=== PATIENT | male | born 1970 | race Caucasian/White ===

== ENCOUNTER 2022-09-03 06:47 | Day surgery (SDC) | payer OTHER, SELFPAY ==
[2022-09-03] VITALS (8 sets, daily range): BP systolic 121–137; BP diastolic 74–86; PULSE 66–92; RESP 18; TEMP 36.3–36.6; O2SAT 94–100; BMI 24.3
== END 2022-09-03 08:54 | disposition home or self-care (01) ==
PROVIDERS: PCP Family Medicine; Visit Provider Ophthalmology
PROC: (CPT 66984; principal; 2022-09-03 08:00)
DX: H25.812 Combined forms of age-related cataract, left eye (principal)
CPT/HCPCS: 66984; V2632

== ENCOUNTER 2022-09-17 06:39 | Day surgery (SDC) | payer OTHER, SELFPAY ==
[2022-09-13 12:44] VITALS: BMI 24.3
[2022-09-17 07:03] VITALS: BP 155/100; PULSE 92; RESP 18; TEMP 36.9; O2SAT 97
[2022-09-17 08:05] VITALS: BP 150/91; PULSE 90; RESP 18; O2SAT 97
[2022-09-17 08:10] VITALS: BP 150/98; PULSE 84; RESP 18; O2SAT 100
[2022-09-17 08:15] VITALS: BP 135/87; PULSE 80; RESP 18; O2SAT 100
[2022-09-17 08:34] VITALS: BP 154/98; PULSE 93; RESP 18; TEMP 36.6; O2SAT 99
== END 2022-09-17 08:35 | disposition home or self-care (01) ==
PROVIDERS: PCP Family Medicine; Visit Provider Ophthalmology
PROC: (CPT 66984; principal; 2022-09-17 08:00)
DX: H25.811 Combined forms of age-related cataract, right eye (principal)
CPT/HCPCS: 66984; V2632